=== PATIENT | male | born 1945 | race Caucasian/White ===

== ENCOUNTER 2016-08-11 12:06 | Emergency (ER) | payer BC ==
--- NOTE | 2016-08-11 12:11 | PDOC ---
History of Present Illness <Honorio Mancilla - Last Filed: 08/11/16 14:13> - General History Source: Patient Exam Limitations: No Limitations - History of Present Illness Initial Comments: 08/11/16 12:11 This is a 71-year-old male with a history of hypertension, hyperlipidemia, cardiomyopathy who presents emergency department with a complaint of cough. Pt states on July 16 he began to have what he thought was a cold, cough and congestion He then travelled to [place] where he spent the past 3 weeks Pt states his cough has been persistent and worsening Cough accompanied by sputum (yellow) Pt also reports shortness of breath which he believes is present due to cough Pt has had intermittent fevers - Tmax 100.6 Ill contact = No travel outside of the country Pt has taken Sudafed with minimal relief (he is also hypertensive, so he was told not to take this excessively) Pt states he has left sided chest pain which he describes as dull, intermittent relieved with Nitro Has a history of cardiomyopathy (unsure cause, EF 46%) Last stress test/cath 5 years ago?? Last seen by Oil Pipeline Operator (Demian Mata) 1 month ago PMH: Hypertension, hyperlipidemia, cardiomyopathy PSH: denies Medications: please see MAR ALL: Penicillin Social: denies drug or cigarette use GENERAL/CONSTITUTIONAL: No: fever, chills, weakness, loss of appetite. HEAD, EYES, EARS, NOSE AND THROAT: No: change in vision, ear pain, discharge, sore throat, throat swelling. CARDIOVASCULAR: No: chest pain, lightheadedness, palpitations, syncope RESPIRATORY: No: cough, shortness of breath, wheezing, hemoptysis, stridor. GASTROINTESTINAL: No: nausea, vomiting, diarrhea, abdominal cramping, rectal bleeding, constipation. GENITOURINARY: No: dysuria, hematuria, frequency, urgency, flank pain. MUSCULOSKELETAL: No: back pain, neck pain, joint pain, muscle swelling or pain SKIN: No: lesions, pallor, rash or easy bruising. NEUROLOGIC: No: headache, vertigo, paresthesias, weakness ENDOCRINE: No: unexplained weight gain or loss HEMATOLOGIC/LYMPHATIC: No: anemia, easy bleeding, swelling nodes. GENERAL: The patient is in no acute distress. HEAD: Normal with no signs of trauma. EYES: PERRLA, EOMI, sclera anicteric, conjunctiva clear. ENT: Ears normal, nares patent, oropharynx clear without exudates. Moist mucous membranes. NECK: Normal range of motion, supple without lymphadenopathy, JVD, or masses. LUNGS: Breath sounds equal, clear to auscultation bilaterally. No wheezes, and no crackles. HEART:Regular rate and rhythm, normal S1 and S2 without murmur, rub or gallop. ABDOMEN: Soft, nontender, normoactive bowel sounds. No guarding, no rebound. No masses palpable. EXTREMITIES: Normal range of motion, no edema. No clubbing or cyanosis. No erythema, or tenderness. NEUROLOGICAL: Cranial nerves II through XII grossly intact. Normal speech. No focal neurological deficits. MUSCULOSKELETAL: Back non-tender to palpation, no CVA tenderness SKIN: Warm, Dry, normal turgor, no rashes or lesions noted. 08/11/16 12:37 <Shania Busby - Last Filed: 08/12/16 12:04> - General Chief Complaint: Respiratory Stated Complaint: COUGH Time Seen by Provider: 08/11/16 12:10 Past History <Honorio Mancilla - Last Filed: 08/11/16 14:13> - Past Medical History Anemia: No Asthma: No Cancer: No Cardiac Disorders: Yes (CARDIOMYOPATHY 2010, SOB) CVA: No COPD: No CHF: No Dementia: No Diabetes: No GI Disorders: No Disorders: No HTN: Yes Hypercholesterolemia: Yes Liver Disease: No Seizures: No Thyroid Disease: No - Psycho/Social/Smoking Cessation Hx Smoking History: Never smoked Hx Alcohol Use: No Drug/Substance Use Hx: No Substance Use Type: None Hx Substance Use Treatment: No <Shania Busby - Last Filed: 08/12/16 12:04> - Past Medical History Allergies/Adverse Reactions: Allergies Allergy/AdvReac Type Severity Reaction Status Date / Time Penicillins Allergy Verified 08/11/16 12:08 Home Medications: Ambulatory Orders Amlodipine Besylate [Norvasc -] 2.5 mg PO DAILY 10/09/13 Ascorbic Acid [Vitamin C] 1,000 mg PO DAILY 10/09/13 Aspirin 81 mg PO DAILY 10/09/13 Ramipril 5 mg PO HS 10/09/13 Simvastatin [Zocor -] 40 mg PO DAILY 10/09/13 Ubidecarenone [Co Q-10] 100 mg PO DAILY 10/09/13 Azithromycin [Zithromax 250mg Tablets -] 250 mg PO UTDICT #6 tab 08/11/16 *Physical Exam - Vital Signs Last Vital Signs Temp Pulse Resp BP Pulse Ox 98.6 F 79 16 128/83 100 08/11/16 12:10 08/11/16 12:10 08/11/16 12:10 08/11/16 12:10 08/11/16 12:10 <Honorio Mancilla - Last Filed: 08/11/16 14:13> ED Treatment Course - LABORATORY CBC & Chemistry Diagram: 08/11/16 12:34 08/11/16 12:34 - ADDITIONAL ORDERS Additional order review: Laboratory Results 08/11/16 08/11/16 13:15 12:34 Sodium 134 L Potassium 3.8 Chloride 105 Carbon Dioxide 23 Anion Gap 6 L BUN 17 Creatinine 1.0 Random Glucose 153 H Calcium 9.3 Creatine Kinase 359 H CK-MB (CK-2) Rel Index 1.1 Troponin I < 0.03 L 08/11/16 12:34 RBC 4.48 MCV 88.3 MCHC 32.9 RDW 13.3 MPV 7.0 L Neutrophils % 64.3 Lymphocytes % 23.8 Monocytes % 8.6 Eosinophils % 2.9 Basophils % 0.4 <Honorio Mancilla - Last Filed: 08/11/16 14:13> - LABORATORY CBC & Chemistry Diagram: 08/11/16 12:34 08/11/16 12:34 <Shania Busby - Last Filed: 08/12/16 12:04> Medical Decision Making - Medical Decision Making 08/11/16 14:13 Dr. Deepti Jesus was called regarding the patient at 2:16pm [phone] <Honorio Mancilla - Last Filed: 08/11/16 14:13> - Medical Decision Making 08/11/16 14:28 Cough Likely bronchitis, URI Possible PNA Possible ACS given history Will do labs Will do xray Will re assess 08/11/16 14:28 Laboratory Tests 08/11/16 08/11/16 08/11/16 12:34 12:34 13:15 WBC 7.4 Hgb 13.0 Hct 39.6 Plt Count 218 Neutrophils % 64.3 Lymphocytes % 23.8 Sodium 134 L Potassium 3.8 Chloride 105 Carbon Dioxide 23 BUN 17 Creatinine 1.0 Random Glucose 153 H Creatine Kinase 359 H Troponin I < 0.03 L CXR: no acute infiltrate Will discharge on Azithromycin Case reviewed with Dr. Reid (pt fertilizer applicator) She will see this patient in the office for repeat stress test in 2-3 business days I have asked pt to follow up with Dr Andre next week Return to the ER for any other concerns or complaints 08/12/16 12:03 <Shania Busby - Last Filed: 08/12/16 12:04> *DC/Admit/Observation/Transfer <Honorio Mancilla - Last Filed: 08/11/16 14:13> - Discharge Dispostion Admit: No <Shania Busby - Last Filed: 08/12/16 12:04> Diagnosis at time of Disposition: Upper respiratory infection Qualifiers: URI type: unspecified URI Qualified Code(s): J06.9 - Acute upper respiratory infection, unspecified - Discharge Dispostion Disposition: HOME Condition at time of disposition: Improved - Prescriptions Prescriptions: Azithromycin [Zithromax 250mg Tablets -] 250 mg PO UTDICT #6 tab - Referrals Referrals: Jhony Andre MD [Staff Physician] - - Patient Instructions Printed Discharge Instructions: DI for Viral Upper Respiratory Infection -- Adult Additional Instructions: Ramesh Thank you for coming in to the ER today I am sorry that you are coughing Please monitor yourself for fevers while taking the antibiotics Please take medications as prescribed Return to the ER for any other concerns or complaints You MUST follow up with your fertilizer applicator for stress testing, call the office on Sunday
[2016-08-11 13:29] LABS: BASOPHIL 0.4 % (0-2.0); CALCIUM 9.3 mg/dl (8.4-10.2); EOSINOPHIL 2.9 % (0-4.5); MCHC 32.9 g/dl (32.0-35.9); MEAN CELL VOLUME 88.3 fl (80-96); NEUTROPHILS 64.3 % (42.8-82.8); PLATELET COUNT 218 K/MM3 (134-434); RDW 13.3 % (11.9-15.9); WHITE BLOOD COUNT 7.4 K/mm3 (4.0-10.0)
[2016-08-11 13:30] LABS: CPK(DFH) 359 IU/L (38-174)
[2016-08-11 13:54] LABS: TROPONIN I (DFP) < 0.03 ng/ml (0.03-0.50)
[2016-08-11 14:05] VITALS: BP 128/83; PULSE 79; TEMP 98.6; BMI 30.4
--- NOTE | 2016-08-13 11:29 | EKG ---
Test Reason : Blood Pressure : / mmHG Vent. Rate : 071 BPM Atrial Rate : 071 BPM P-R Int : 170 ms QRS Dur : 092 ms QT Int : 396 ms P-R-T Axes : 080 -43 -03 degrees QTc Int : 430 ms POOR DATA QUALITY, INTERPRETATION MAY BE ADVERSELY AFFECTED NORMAL SINUS RHYTHM LEFT AXIS DEVIATION ABNORMAL ECG NO PREVIOUS ECGS AVAILABLE Confirmed by ALYSSA COUCH MD ([id number]) on 08/13/2016 11:28:56 AM Referred By: Confirmed By:ALYSSA COUCH MD
[2016-08-13 11:48] LABS: CK MB 4.1 ng/ml (0.3-4.0)
== END 2016-08-11 14:34 | disposition home or self-care (01) ==
LOC: FER 12:06
DX: J06.9 Acute upper respiratory infection, unspecified (principal); I10 Essential (primary) hypertension; E78.00 Pure hypercholesterolemia, unspecified; I42.9 Cardiomyopathy, unspecified
CPT/HCPCS: 36415; 71020-TC; 80048; 82550; 82553; 84484; 85025; 93005; 99282-25

== ENCOUNTER 2016-10-02 12:24 | Emergency (ER) | payer BC ==
[2016-10-02 12:31] VITALS: BP 140/99; PULSE 119; TEMP 98.4; BMI 30.1
--- NOTE | 2016-10-02 12:56 | PDOC ---
History of Present Illness <Rich Benson - Last Filed: 10/02/16 12:52> - General History Source: Patient Exam Limitations: No Limitations - History of Present Illness Initial Comments: 10/02/16 13:01 Patient is a 71 year old male with pmhx of cardiomyopathy, chronic back pain ( epidural injections, last 11/2015), hypertension and hyperlipidemia who presents to the ED with left lower extremity pain for 3-4 days. Patient notes that 2 weeks ago he developed a back pain and was taking flexeril once a day. He reports mild relief on Sunday, but today he was unable to get out of bed due to the lower extremity pain. He has difficulty ambulating due to trouble putting weight on the left lower extremity. He denies any dysuria or testicular pain. PCP- Dr Andre <Mela Mackey - Last Filed: 10/02/16 13:02> - General Chief Complaint: Back Pain Stated Complaint: BACK PAIN Time Seen by Provider: 10/02/16 12:36 Past History - Past Medical History Anemia: No Asthma: No Cancer: No Cardiac Disorders: Yes (CARDIOMYOPATHY 2010, SOB) CVA: No COPD: No CHF: No Dementia: No Diabetes: No GI Disorders: No Disorders: No HTN: Yes Hypercholesterolemia: Yes Liver Disease: No Seizures: No Thyroid Disease: No Other medical history: STENOSIS - Psycho/Social/Smoking Cessation Hx Anxiety: No Suicidal Ideation: No Smoking History: Never smoked Have you smoked in the past 12 months: No Information on smoking cessation initiated: No Hx Alcohol Use: No Drug/Substance Use Hx: No Substance Use Type: None Hx Substance Use Treatment: No <Rich Benson - Last Filed: 10/02/16 12:52> <Mela Mackey - Last Filed: 10/02/16 13:02> - Past Medical History Allergies/Adverse Reactions: Allergies Allergy/AdvReac Type Severity Reaction Status Date / Time Penicillins Allergy Verified 10/02/16 12:25 Home Medications: Ambulatory Orders Amlodipine Besylate [Norvasc -] 2.5 mg PO DAILY 10/09/13 Ascorbic Acid [Vitamin C] 1,000 mg PO DAILY 10/09/13 Aspirin 81 mg PO DAILY 10/09/13 Ramipril 5 mg PO HS 10/09/13 Simvastatin [Zocor -] 40 mg PO DAILY 10/09/13 Ubidecarenone [Co Q-10] 100 mg PO DAILY 10/09/13 Azithromycin [Zithromax 250mg Tablets -] 250 mg PO UTDICT #6 tab 08/11/16 Review of Systems - Review of Systems Able to Perform ROS?: Yes Comments:: 10/02/16 13:02 General: Absent: fever, chills GI: +constipation Absent: nausea, vomiting : Absent: dysuria, testicular pain Musculoskeletal: +back pain, +left lower extremity pain <Mela Mackey - Last Filed: 10/02/16 13:02> *Physical Exam - Vital Signs Last Vital Signs Temp Pulse Resp BP Pulse Ox 98.4 F 119 H 18 140/99 95 10/02/16 12:25 10/02/16 12:25 10/02/16 12:25 10/02/16 12:25 10/02/16 12:25 - Physical Exam General Appearance: Yes: Nourished, Appropriately Dressed. No: Apparent Distress HEENT: positive: Normal ENT Inspection Neck: positive: Supple. negative: Tender Respiratory/Chest: positive: Lungs Clear. negative: Respiratory Distress Cardiovascular: positive: Regular Rhythm, Regular Rate, Tachycardia Gastrointestinal/Abdominal: positive: Normal Bowel Sounds, Soft. negative: Tender Male Genitalia: positive: normal genitalia, other (NORMAL CREMASTERIC REFLEX AND NO SADDLE PARESTHESIAS) Musculoskeletal: positive: Normal Inspection, Other (LT SIJ POINT TENDERNESS). negative: CVA Tenderness, Vertebral Tenderness Integumentary: positive: Normal Color. negative: Rash Neurologic: positive: Fully Oriented, Alert, Normal Mood/Affect, Normal Response , Motor Strength 5/5. 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 <Mela Mackey - Last Filed: 10/02/16 13:02> Diagnosis at time of Disposition: Radiculopathy of leg - Discharge Dispostion Disposition: HOME Condition at time of disposition: Stable - Referrals Referrals: Jhony Andre MD [Primary Care Provider] - Call tomorrow - Patient Instructions Additional Instructions: TAKE FLEXERIL 10 MG 3 TIMES A DAY FOR 3 DAYS REGULAR TYLENOL DURING THE DAY AND VICODIN AT NIGHT IF NEEDED SEE YOUR PAIN MANAGEMENT DOCTOR TODAY RETURN IF WORSENING OR NEW SYMPTOMS LET YOUR PLUG AND MOLD FINISHER KNOW ABOUT YOUR VISIT TO THE ER TODAY
== END 2016-10-02 13:53 | disposition home or self-care (01) ==
LOC: JER 12:24
DX: M54.42 Lumbago with sciatica, left side (principal); I10 Essential (primary) hypertension; E78.5 Hyperlipidemia, unspecified; I42.8 Other cardiomyopathies
CPT/HCPCS: 99283-25

== ENCOUNTER 2016-11-10 13:53 | Inpatient (IN) | payer BC, OTHER ==
--- NOTE | 2016-11-10 14:49 | PDOC ---
History of Present Illness - General History Source: Patient Exam Limitations: No Limitations - History of Present Illness Initial Comments: 11/10/16 17:04 The patient is a 71 year old male with a significant past medical history of cardiomyopathy, HTN and HLD who presents to the ED with progressively worsening lower left extremity edema s/p laminectomy. The patient reports he recently had a laminectomy done [address] Monsalve. He states that he noticed slight lower extremity secondary when he was discharged but reports worsened lower left extremity edema [address] Monsalve referred the patient to get an ultrasound earlier today, which is positive for a DVT. Denies chest pain or shortness of breath. Denies dyspnea on exertion, coughing, or hemoptysis. Denies leg pain or calf pain. Denies any other symptoms. Paternal hx: The patient reports his dad had a blood clot in the 90s but is unsure of the cause. PMD: Dr. Andre <Arnaud Landeros - Last Filed: 11/10/16 17:04> <Yusuf Peoples - Last Filed: 11/10/16 17:51> - General Chief Complaint: Revisit,Radiology Variance Stated Complaint: CONFIRMED DVT IN LT LEG Time Seen by Provider: 11/10/16 14:47 Past History <Arnaud Landeros - Last Filed: 11/10/16 17:04> - Past Medical History Anemia: No Asthma: No Cancer: No Cardiac Disorders: Yes (CARDIOMYOPATHY 2010, SOB) CVA: No COPD: No CHF: No Dementia: No Diabetes: No GI Disorders: No Disorders: No HTN: Yes Hypercholesterolemia: Yes Liver Disease: No Seizures: No Thyroid Disease: No - Surgical History Neurologic Surgery: Yes (L4 HERNIATION REPAIR) - Psycho/Social/Smoking Cessation Hx Anxiety: No Suicidal Ideation: No Smoking History: Never smoked Have you smoked in the past 12 months: No Hx Alcohol Use: No Drug/Substance Use Hx: No Substance Use Type: None Hx Substance Use Treatment: No <Yusuf Peoples - Last Filed: 11/10/16 17:51> - Past Medical History Allergies/Adverse Reactions: Allergies Allergy/AdvReac Type Severity Reaction Status Date / Time Penicillins Allergy Verified 11/10/16 14:07 Home Medications: Ambulatory Orders Amlodipine Besylate [Norvasc -] 2.5 mg PO DAILY 10/09/13 Ascorbic Acid [Vitamin C] 1,000 mg PO DAILY 10/09/13 Aspirin 81 mg PO DAILY 10/09/13 Ramipril 5 mg PO HS 10/09/13 Simvastatin [Zocor -] 40 mg PO DAILY 10/09/13 Ubidecarenone [Co Q-10] 100 mg PO DAILY 10/09/13 Azithromycin [Zithromax 250mg Tablets -] 250 mg PO UTDICT #6 tab 08/11/16 Review of Systems - Review of Systems Able to Perform ROS?: Yes Comments:: 11/10/16 17:04 CONSTITUTIONAL: No reported: Fever, Chills, Diaphoresis, Generalized Weakness, Malaise, Loss of Appetite HEENT: No reported: Rhinorrhea, Nasal Congestion, Throat Pain, Throat Swelling, Difficulty Swallowing, Mouth Swelling, Ear Pain, Eye Pain, Visual Changes CARDIOVASCULAR: No reported: Chest Pain, Syncope, Palpitations, Irregular Heart Rate, Lightheadedness, Peripheral Edema RESPIRATORY: No reported: Cough, Shortness of Breath, SOB with Exertion, Orthopnea, Wheezing , Stridor, Hemoptysis GASTROINTESTINAL: No reported: Abdominal pain, Abdominal Distension, Nausea, Vomiting, Diarrhea, Constipation, Melena, Hematochezia GENITOURINARY: No reported: Dysuria, Frequency, Urgency, Hesitancy, Flank Pain, Genital Pain MUSCULOSKELETAL: + left leg swelling No reported: Myalgia, Arthralgia, Joint Swelling, Back pain, Neck Pain SKIN: No reported: Rash, Itching, Pallor HEMEATOLOGIC/IMMUNOLOGIC: No reported: Easy Bleeding, Easy Bruising, Lymphadenopathy, Frequent infections ENDOCRINE: No reported: Unexplained Weight Gain, Unexplained Weight Loss, Heat Intolerance , Cold Intolerance NEUROLOGIC: No reported: Headache, Focal Weakness, Paresthesias, Vertigo, Lightheadedness, Unsteady Gait, Seizure, Mental Status Changes, Incontinence PSYCHIATRIC: No reported: Anxiety, Depression All Other Systems: Reviewed and Negative <Arnaud Landeros - Last Filed: 11/10/16 17:04> *Physical Exam - Vital Signs Last Vital Signs Temp Pulse Resp BP Pulse Ox 98.8 F 105 H 19 135/78 97 11/10/16 14:07 11/10/16 14:07 11/10/16 14:07 11/10/16 14:07 11/10/16 14:07 - Physical Exam Comments: 11/10/16 17:04 GENERAL: The patient is awake, alert, and fully oriented, Nontoxic - in no acute distress. HEAD: Normocephalic, atraumatic. EYES: extraocular movements intact, sclera anicteric, conjunctiva clear. ENT: Normal voice, Moist mucous membranes. NECK: Normal range of motion, supple LUNGS: Breath sounds equal, clear to auscultation bilaterally. No wheezes, no rhonchi, no rales. HEART: Regular rate and rhythm, without murmur, rub or gallop. ABDOMEN: Soft, nontender, normoactive bowel sounds. No guarding, no rebound.No CVA tenderness EXTREMITIES: + 3+ edema in the left lower extremity, no calf tenderness or pain. Normal range of motion. No clubbing or cyanosis. No cords, erythema, or tenderness. NEUROLOGICAL: No facial assymetry, Normal speech, PSYCH: Normal mood, normal affect. SKIN: + midline lumbar incision; clear, dry, packed with gifty, no erythema, non tender, non fluctuant. Warm, Dry, normal turgor <Arnaud Landeros - Last Filed: 11/10/16 17:04> - Vital Signs Last Vital Signs Temp Pulse Resp BP Pulse Ox 98.8 F 105 H 19 135/78 97 11/10/16 14:07 11/10/16 14:07 11/10/16 14:07 11/10/16 14:07 11/10/16 14:07 <Yusuf Peoples - Last Filed: 11/10/16 17:51> Heart Score/ECG Review - ECG Impressions Comment:: 11/10/16 17:50 Twelve-lead EKG was performed and reviewed by me. There is normal sinus rhythm with a normal rate. Rate of 96 Left anterior fascicular block There are no ST or T wave abnormalities. No ST changes suggestive of ischemia N osigns of S1, every 3, T3 no signs of right heart strain <Yusuf Peoples - Last Filed: 11/10/16 17:51> ED Treatment Course - LABORATORY CBC & Chemistry Diagram: 11/10/16 16:11 11/10/16 16:11 - ADDITIONAL ORDERS Additional order review: 11/10/16 16:11 RBC 3.60 L MCV 90.5 MCHC 34.1 RDW 14.5 MPV 6.3 L Neutrophils % 80.3 Lymphocytes % 12.1 D Monocytes % 6.5 Eosinophils % 0.7 Basophils % 0.4 <Arnaud Landeros - Last Filed: 11/10/16 17:04> - LABORATORY CBC & Chemistry Diagram: 11/10/16 16:11 11/10/16 16:11 <Yusuf Peoples - Last Filed: 11/10/16 17:51> Medical Decision Making - Medical Decision Making 11/10/16 15:[address] Reddy pt is about 8 days outside of his laminectomy - now with confirmed DVT - states as far as he is concerned he can get any type of A/C necessary. would recommend admission for a/c as pt is recently post op pt is not complainng of any signs or ypmtoms of PE. 11/10/16 17:41 case dw [employer] OPERATOR tim and dr[facility] will give pt lovenx abg wnl, without sypmtoms of PE, will dfer CTA Case discussed in detail with admitting physician including history, physical exam and ancillary studies. Admitting physician has assumed care for the patient, will follow all pending diagnostics and will complete the evaluation and treatment. <Yusuf Peoples - Last Filed: 11/10/16 17:51> *DC/Admit/Observation/Transfer - Attestations Scribe Attestion: 11/10/16 17:04 Documentation prepared by Arnaud Landeros, acting as medical scientific liaison for Yusuf Peoples MD <Arnaud Landeros - Last Filed: 11/10/16 17:04> - Discharge Dispostion Admit: Yes <Yusuf Peoples - Last Filed: 11/10/16 17:51> Diagnosis at time of Disposition: DVT (deep venous thrombosis) Qualifiers: DVT location: lower extremity Affected thrombotic vein of extremity: popliteal Laterality: left Chronicity: acute Qualified Code(s): I82.432 - Acute embolism and thrombosis of left popliteal vein - Discharge Dispostion Condition at time of disposition: Stable - Referrals Referrals: Jhony Andre MD [Primary Care Provider] - - Patient Instructions
[2016-11-10 16:22] LABS: BASOPHIL 0.4 % (0-2.0); EOSINOPHIL 0.7 % (0-4.5); MCH 30.9 pg (25.7-33.7); MCHC 34.1 g/dl (32.0-35.9); MEAN CELL VOLUME 90.5 fl (80-96); MEAN PLT VOLUME 6.3 fl (7.5-11.1); NEUTROPHILS 80.3 % (42.8-82.8); PLATELET COUNT 302 K/MM3 (134-434); RDW 14.5 % (11.9-15.9); WHITE BLOOD COUNT 12.4 K/mm3 (4.0-10.0)
[2016-11-10 17:08] LABS: ALBUMIN 3.6 g/dl (3.4-5.0); ALK PHOS 152 U/L (45-117); ANION GAP 12 (8-16); BILIRUBIN,TOTAL 0.8 mg/dL (0.2-1.0); CALCIUM 9.2 mg/dL (8.5-10.1); CO2 25 mmol/L (21-32); COCKROFT - GAULT 86.32; GLUCOSE,RANDOM 143 mg/dL (74-106); SGOT/AST 21 U/L (15-37); SGPT/ALT 45 U/L (12-78); TOT PROT 7.4 g/dl (6.4-8.2)
[2016-11-10 17:20] LABS: ARTERIAL BLOOD GAS HCO3 20.8 meq/L (22-26); ARTERIAL BLOOD GAS PO2 91.9 mmHg (80-100); ARTERIAL BLOOD GAS pH 7.45 (7.35-7.45)
[2016-11-10 17:21] LABS: ALLENS TEST POSITIVE; ART PUNCT SITE RIGHT RADIAL; LPM/O2% 21%; PT. ON O2? NO; TYPE OF O2 R/A
[2016-11-10] MEDS ORDERED: ENOXAPARIN NA (PORCINE) 100 MG/1 ML DISP.SYRIN SQ ONE ×2 (17:40→18:16)
--- NOTE | 2016-11-10 17:49 | HP ---
CHIEF COMPLAINT: Leg swelling PCP: Dr. Andre Worm Farm Laborer: Dr. Andie Jesus ([phone]) HISTORY OF PRESENT ILLNESS: This is a 71 year old male with a history of HTN, HLD, and cardiomyopathy who underwent laminectomy at [facility] 8 days ago. He has noticed left leg swelling for some time (he thinks it may have been present prior to the surgery, and notes that he was in a wheelchair for 5 weeks leading up to it), and today called his surgeon to report that it was worse. His surgeon ordered an outpatient LE doppler, which was positive for extensive DVT extending from the proximal superficial femoral vein through the popliteal and posterior tibial veins. The patient denies chest pain, shortness of breath, hemoptysis, or any other symptoms. 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 Smoking: Never smoker Alcohol: Occasional Family History: Father with DVT at age of 90+ Allergies Penicillins Allergy (Verified 11/10/16 14:07) HOME MEDICATIONS: Home Medications Medication Instructions Recorded Amlodipine Besylate [Norvasc -] 2.5 mg PO DAILY 10/09/13 Ascorbic Acid [Vitamin C] 1,000 mg PO DAILY 10/09/13 Aspirin 81 mg PO DAILY 10/09/13 Ramipril 5 mg PO HS 10/09/13 Simvastatin [Zocor -] 40 mg PO DAILY 10/09/13 Ubidecarenone [Co Q-10] 100 mg PO DAILY 10/09/13 Azithromycin [Zithromax 250mg 250 mg PO UTDICT #6 tab 08/11/16 Tablets -] REVIEW OF SYSTEMS CONSTITUTIONAL: Absent: fever, chills, diaphoresis, generalized weakness, malaise, loss of appetite, weight change HEENT: Absent: rhinorrhea, nasal congestion, throat pain, throat swelling, difficulty swallowing, mouth swelling, ear pain, eye pain, visual changes CARDIOVASCULAR: LLE edema Absent: chest pain, syncope, palpitations, irregular heart rate, lightheadedness RESPIRATORY: Absent: cough, shortness of breath, dyspnea with exertion, orthopnea, wheezing, stridor, hemoptysis GASTROINTESTINAL: Absent: abdominal pain, abdominal distension, nausea, vomiting, diarrhea, constipation, melena, hematochezia GENITOURINARY: Absent: dysuria, frequency, urgency, hesitancy, hematuria, flank pain, genital pain MUSCULOSKELETAL: Chronic low back pain, s/p laminectomy 8 days ago SKIN: Absent: rash, itching, pallor HEMATOLOGIC/IMMUNOLOGIC: Absent: easy bleeding, easy bruising, lymphadenopathy, frequent infections ENDOCRINE: Absent: unexplained weight gain, unexplained weight loss, heat intolerance, cold intolerance NEUROLOGIC: Absent: headache, focal weakness or paresthesias, dizziness, unsteady gait, seizure, mental status changes, bladder or bowel incontinence PSYCHIATRIC: Absent: anxiety, depression, suicidal or homicidal ideation, hallucinations. PHYSICAL EXAMINATION Vital Signs - 24 hr 11/10/16 14:07 Temperature 98.8 F Pulse Rate 105 H Respiratory 19 Rate Blood Pressure 135/78 O2 Sat by Pulse 97 Oximetry (%) GENERAL: Awake, alert, and fully oriented, in no acute distress. HEAD: Normal with no signs of trauma. EYES: Pupils equal, round and reactive to light, extraocular movements intact, sclera anicteric, conjunctiva clear. No lid lag. EARS, NOSE, THROAT: Ears normal, nares patent, oropharynx clear without exudates. Moist mucous membranes. NECK: Normal range of motion, supple without lymphadenopathy, JVD, or masses. LUNGS: Breath sounds equal, clear to auscultation bilaterally. No wheezes, and no crackles. No accessory muscle use. HEART: Regular rate and rhythm, normal S1 and S2 without murmur, rub or gallop. ABDOMEN: Soft, nontender, not distended, normoactive bowel sounds, no guarding, no rebound, no masses. No hepatomegaly or splenomegaly. MUSCULOSKELETAL: Normal range of motion at all joints. No bony deformities or tenderness. No CVA tenderness. Lumbar dressing clean/dry/intact. Upper back lipoma. UPPER EXTREMITIES: 2+ pulses, warm, well-perfused. No cyanosis. No clubbing. No peripheral edema. LOWER EXTREMITIES: 3+ pitting LLE edema, +calf tenderness. Leg is warm, well- perfused, sensation is intact. NEUROLOGICAL: Cranial nerves II-XII intact. Normal speech. Normal gait. PSYCHIATRIC: Cooperative. Good eye contact. Appropriate mood and affect. SKIN: Warm, dry, normal turgor, no rashes or lesions noted, normal capillary refill. Laboratory Results - last 24 hr 11/10/16 11/10/16 11/10/16 16:11 16:11 16:11 WBC 12.4 H D RBC 3.60 L Hgb 11.1 L D Hct 32.5 L MCV 90.5 MCHC 34.1 RDW 14.5 Plt Count 302 D MPV 6.3 L Neutrophils % 80.3 Lymphocytes % 12.1 D Monocytes % 6.5 Eosinophils % 0.7 Basophils % 0.4 Puncture Site ABG pH ABG pCO2 at Pt Temp ABG pO2 at Pt Temp ABG HCO3 ABG O2 Sat (Measured) ABG O2 Content ABG Base Excess Morgan Test O2 Delivery Device Oxygen Flow Rate Sodium 141 Potassium 4.6 Chloride 104 Carbon Dioxide 25 Anion Gap 12 BUN 14 D Creatinine 1.0 Creat Clearance w eGFR > 60 Random Glucose 143 H Calcium 9.2 Total Bilirubin 0.8 AST 21 D ALT 45 D Alkaline Phosphatase 152 H D Total Protein 7.4 Albumin 3.6 Blood Type B POSITIVE Antibody Screen Negative 11/10/16 17:15 WBC RBC Hgb Hct MCV MCHC RDW Plt Count MPV Neutrophils % Lymphocytes % Monocytes % Eosinophils % Basophils % Puncture Site Right radial ABG pH 7.45 ABG pCO2 at Pt Temp 30.6 L ABG pO2 at Pt Temp 91.9 ABG HCO3 20.8 L ABG O2 Sat (Measured) 98.0 ABG O2 Content 14.7 L ABG Base Excess -2.0 Morgan Test Positive O2 Delivery Device R/a Oxygen Flow Rate 21% Sodium Potassium Chloride Carbon Dioxide Anion Gap BUN Creatinine Creat Clearance w eGFR Random Glucose Calcium Total Bilirubin AST ALT Alkaline Phosphatase Total Protein Albumin Blood Type Antibody Screen ASSESSMENT/PLAN: 71 year old male with extensive DVT, 8 days s/p laminectomy. Problem List - Problem (1) DVT (deep venous thrombosis) Assessment/Plan: -Started on Lovenox 1mg/kg sq bid -Need to contact insurance company during business hours to determine which NOAC they will cover (patient prefers this to warfarin) -Orthopedist contacted by ER physician and agrees that we may proceed with AC -Recently post-op; monitor for signs of bleeding Code(s): I82.409 - ACUTE EMBOLISM AND THOMBOS UNSP DEEP VN UNSP LOWER EXTREMITY Qualifiers: DVT location: lower extremity Affected thrombotic vein of extremity: popliteal Laterality: left Chronicity: acute Qualified Code(s): I82.432 - Acute embolism and thrombosis of left popliteal vein (2) HTN (hypertension) Assessment/Plan: -BP near goal -Continue Altace/Norvasc Code(s): I10 - ESSENTIAL (PRIMARY) HYPERTENSION (3) HLD (hyperlipidemia) Assessment/Plan: -Continue Zocor Code(s): E78.5 - HYPERLIPIDEMIA, UNSPECIFIED (4) Cardiomyopathy Assessment/Plan: -No active issues Code(s): I42.9 - CARDIOMYOPATHY, UNSPECIFIED (5) DVT prophylaxis Assessment/Plan: -Therapeutic AC Code(s): BZW3616 - Visit type - Emergency Visit Emergency Visit: Yes ED Registration Date: 11/10/16 Care time: The patient presented to the Emergency Department on the above date and was hospitalized for further evaluation of their emergent condition. - New Patient This patient is new to me today: Yes Date on this admission: 11/10/16 - Critical Care Critical Care patient: No
[2016-11-10] MEDS ORDERED: ONDANSETRON 4 MG/2 ML VIAL IVPB PRN (17:50)
[2016-11-10] MEDS ORDERED: oxyCODONE HCL 5 MG TABLET PO PRN (19:02)
[2016-11-10] MEDS: ACETAMINOPHEN 325 MG TABLET (FP) PO PRN (20:55)
[2016-11-10] MEDS: DOCUSATE SODIUM 100 MG CAPSULE (FP) PO SCH (20:59)
[2016-11-10] MEDS ORDERED: ATORVASTATIN CA 20 MG TABLET (FP) PO SCH (22:00)
[2016-11-11 01:26] VITALS: BMI 30.9
[2016-11-11] MEDS ORDERED: ENOXAPARIN NA (PORCINE) 80 MG/0.8 ML DISP.SYRIN SQ SCH ×2 (06:00)
[2016-11-11] MEDS: DOCUSATE SODIUM 100 MG CAPSULE (FP) PO SCH (06:32)
[2016-11-11] MEDS: ACETAMINOPHEN 325 MG TABLET (FP) PO PRN (06:37)
[2016-11-11 08:15] LABS: BASOPHIL 0.7 % (0-2.0); EOSINOPHIL 1.7 % (0-4.5); MCH 30.8 pg (25.7-33.7); MCHC 34.3 g/dl (32.0-35.9); MEAN CELL VOLUME 89.9 fl (80-96); MEAN PLT VOLUME 6.6 fl (7.5-11.1); NEUTROPHILS 71.6 % (42.8-82.8); PLATELET COUNT 258 K/MM3 (134-434); RDW 14.3 % (11.9-15.9); WHITE BLOOD COUNT 9.4 K/mm3 (4.0-10.0)
[2016-11-11 08:34] LABS: INR 1.11 (0.82-1.09); PROTHROMBIN TIME (PATIENT) 12.2 SEC (9.98-11.88)
[2016-11-11 08:38] LABS: ALBUMIN 3.1 g/dl (3.4-5.0); ANION GAP 12 (8-16); CO2 24 mmol/L (21-32); GLUCOSE,RANDOM 127 mg/dL (74-106)
[2016-11-11 08:43] LABS: ALK PHOS 136 U/L (45-117); BILIRUBIN,TOTAL 1.1 mg/dL (0.2-1.0); CALCIUM 8.9 mg/dL (8.5-10.1); COCKROFT - GAULT 95.4; CREATININE 0.9 mg/dL (0.7-1.3); SGOT/AST 19 U/L (15-37); SGPT/ALT 44 U/L (12-78); TOT PROT 6.7 g/dl (6.4-8.2)
[2016-11-11] MEDS ORDERED: RAMIPRIL 5 MG CAPSULE (FP) PO SCH (10:00)
[2016-11-11] MEDS ORDERED: amLODIPine BESYLATE 2.5 MG TABLET (FP) PO SCH (10:00)
[2016-11-11] MEDS ORDERED: PATIENT'S OWN MEDICATION (NON-FORMULARY) (Ubidecarenone [Co Q-10] 100 MG) PO SCH (10:00)
--- NOTE | 2016-11-11 12:21 | DS ---
Physical Examination Vital Signs: Vital Signs Temperature 98.4 F 11/11/16 06:00 Pulse Rate 95 H 11/11/16 06:00 Respiratory Rate 20 11/11/16 06:00 Blood Pressure 138/78 11/11/16 06:00 O2 Sat by Pulse Oximetry (%) 98 11/10/16 19:48 Findings/Remarks: PATIENT WAS ADMITTED OVERNIGHT DUE TO EXTENSIVE LEFT DVT S/P SURG ONE WEEK AGO HE RECEIVED LOVENOX AND SURGEON WAS CONTACTED. PATIENT WILL BE DISCHARGED ON A NOAC AND FOLLOWED AN OUTPATIENT. Stacey LANDRY MD Constitutional: Yes: No Distress Eyes: Yes: Conjunctiva Clear HENT: Yes: Atraumatic Neck: Yes: Supple Cardiovascular: Yes: Regular Rate and Rhythm Respiratory: Yes: Regular Gastrointestinal: Yes: Normal Bowel Sounds Edema: LLE: 2+ Neurological: Yes: Alert Labs: CBC, BMP 11/11/16 06:20 11/11/16 06:20 rest reviewed Discharge Summary Reason For Visit: DVT Current Active Problems Cardiomyopathy (Acute) DVT (deep venous thrombosis) (Acute) DVT prophylaxis (Acute) HLD (hyperlipidemia) (Acute) HTN (hypertension) (Acute) Condition: Stable - Instructions Referrals: Jhony Landry MD [Primary Care Provider] - - Home Medications Comprehensive Discharge Medication List: Ambulatory Orders Amlodipine Besylate [Norvasc -] 5 mg PO DAILY 10/09/13 Ramipril 10 mg PO DAILY 10/09/13 Simvastatin [Zocor -] 40 mg PO DAILY 10/09/13 Ubidecarenone [Co Q-10] 100 mg PO DAILY 10/09/13 Hydrocodone/Acetaminophen [Vicodin Es 7.5-300 mg Tablet] 1 each PO BID 11/10/16
[2016-11-11 13:30] VITALS: BP 141/79; PULSE 96; TEMP 99.2
--- NOTE | 2016-11-11 16:22 | EKG ---
Test Reason : Blood Pressure : / mmHG Vent. Rate : 096 BPM Atrial Rate : 096 BPM P-R Int : 148 ms QRS Dur : 090 ms QT Int : 352 ms P-R-T Axes : 049 -47 018 degrees QTc Int : 444 ms NORMAL SINUS RHYTHM LEFT ANTERIOR FASCICULAR BLOCK ABNORMAL ECG WHEN COMPARED WITH ECG OF 11-AUG-2016 12:51, NO SIGNIFICANT CHANGE WAS FOUND Confirmed by FABRIZIO YODER MD ([id number]) on 11/11/2016 4:21:39 PM Referred By: Confirmed By:FABRIZIO YODER MD
== END 2016-11-11 13:36 | disposition home or self-care (01) | DRG 300 ==
LOC: JER 13:53 → JERBED 17:47 → J6W 20:14 → J6S 20:27
PROVIDERS: ADMIT Specialist; ATTEND Specialist
DX: I82.432 Acute embolism and thrombosis of left popliteal vein (principal); I42.9 Cardiomyopathy, unspecified; I82.412 Acute embolism and thrombosis of left femoral vein; I82.442 Acute embolism and thrombosis of left tibial vein; I10 Essential (primary) hypertension; E78.5 Hyperlipidemia, unspecified; Z88.0 Allergy status to penicillin
CPT/HCPCS: 36415; 36600; 71010-TC; 80053; 82803; 85025; 85610; 86850; 86900; 86901; 93005; 93010; 99285-25

== ENCOUNTER 2022-09-20 12:34 | Emergency (ER) | payer OTHER, BC ==
[2022-09-20 12:55] VITALS: TEMP 98.8; BMI 33.5
[2022-09-20] MEDS ORDERED: ASPIRIN 81 MG CHEWABLE TABLETS PO ONE (14:51)
[2022-09-20] MEDS ORDERED: ASPIRIN 81 MG CHEWABLE TABLETS ONE (14:58)
[2022-09-20 15:17] LABS: BASO % 0.5 % (0-2.0); HEMOGLOBIN 11.8 GM/dL (11.7-16.9); LYMPH % 25.1 % (8-40); MCH 30.6 pg (25.7-33.7); MCHC 33.8 g/dl (32.0-35.9); MEAN CELL VOLUME 90.7 fl (80-96); MEAN PLT VOLUME 7.4 fl (7.5-11.1); NEUT % 65.4 % (42.8-82.8); PLATELET COUNT 163 10^3/uL (134-434); RBC 3.86 M/mm3 (4.00-5.60); RDW 15.1 % (11.9-15.9); WHITE BLOOD COUNT 6.7 K/mm3 (4.0-10.0)
[2022-09-20 15:24] LABS: INR 0.97 (0.83-1.09); PROTHROMBIN TIME (PATIENT) 11.3 SEC (9.7-13.0)
[2022-09-20 15:27] LABS: ACTIVATED PTT 25.8 SECONDS (25.2-36.5)
[2022-09-20 15:38] LABS: ALBUMIN 3.5 g/dl (3.4-5.0); BLOOD UREA NITROGEN 22.2 mg/dL (7-18)
[2022-09-20 15:42] LABS: BILIRUBIN,TOTAL 0.9 mg/dL (0.2-1); CREATININE 1.3 mg/dL (0.55-1.3); TOT PROT 6.7 g/dl (6.4-8.2)
[2022-09-20 15:47] VITALS: BP 116/72; PULSE 56; RESP 12
== END 2022-09-20 20:05 | disposition left against medical advice (07) ==
LOC: JER 12:34
DX: R55 Syncope and collapse (principal); R07.9 Chest pain, unspecified
CPT/HCPCS: 0241U-QW; 36415; 71275-TC; 80053; 84484; 85025; 85610; 85730; 93005; 93010; 99285-25; Q9967

== ENCOUNTER 2023-08-02 04:14 | Day surgery (SDC) | payer OTHER, BC ==
[2023-08-02 09:12] VITALS: TEMP 97.7
[2023-08-02 09:45] VITALS: BP 108/65; PULSE 71; RESP 18
== END 2023-08-02 09:50 | disposition home or self-care (01) ==
LOC: JASU-ENDO 04:14
PROVIDERS: ATTEND Internal Medicine Gastroenterology
PROC: 0DB78ZX Excision of Stomach, Pylorus, Via Natural or Artificial Opening Endoscopic, Diagnostic (ICD-10-PCS; 2023-08-02)
PROC: 0DB68ZX Excision of Stomach, Via Natural or Artificial Opening Endoscopic, Diagnostic (ICD-10-PCS; principal; 2023-08-02 09:00)
DX: K29.50 Unspecified chronic gastritis without bleeding (principal); I10 Essential (primary) hypertension
CPT/HCPCS: 88305-TC; 88342-TC